=== PATIENT | male | born 1975 | race Two or more races ===

== ENCOUNTER 2023-09-03 10:24 | Emergency (ER) | payer OTHER ==
[~2023-09-03] VITALS: Ht 193 cm; Wt 136.1 kg
[2023-09-03] MEDS ORDERED: IRBESARTAN-HCT1 EACH PO (10:45)
[2023-09-03] MEDS ORDERED: VASOTEC10 MG (10:45)
[2023-09-03] MEDS ORDERED: TRIJARDY XR 121 EACH PO (10:45)
[2023-09-03] MEDS ORDERED: LANTUS SOL100 UNIT/1 SQ (10:46)
[2023-09-03] MEDS ORDERED: ATORVASTATIN CA10 MG PO (10:46)
[2023-09-03 11:20] LABS: ABG PO2 70.2 mmHg (80-100); ABG pCO2 41.3 mmHg (35-45); BASE EXCESS 0.9 mmol/l; BICARBONATE 25.6 mmol/l (23-25); SaO2 94.1 %; Tco2 26.9 mmol/l
[2023-09-03 11:51] LABS: HEMATOCRIT 44.1 % (39.0-48.0); HEMOGLOBIN 14.8 g/dL (13-16.00); MEAN CELL VOLUME 88.4 fL (80.0-100.00); MEAN CORPUSCULAR HEMOGLOBIN 29.6 pg (27.00-32.0); MEAN CORPUSCULAR HGB CONC 33.5 g/dl (32.0-36.0); PLATELET COUNT 333 K/uL (150-450); RED BLOOD COUNT 4.99 M/uL (4.00-6.00); RED CELL DISTRIBUTION WIDTH 13.8 % (11.5-14.5)
[2023-09-03 11:54] LABS: allen test SATISFACTORY; o2 21 %; puncture site RADIAL LEFT
[2023-09-03 12:15] LABS: ALBUMIN 3.4 gm/dL (3.4-5.0); BILIRUBIN TOTAL 0.42 mg/dL (0.3-1.2); CALCIUM 9.8 mg/dL (8.5-10.1); CREATININE SERUM 1.13 mg/dL (0.70-1.30); GFR 68.97; GLOBULINA 6.1 G/DL (2.4-3.5); POTASSIUM 4.09 mEq/L (3.5-5.1); TOTAL PROTEIN 9.5 gm/dL (6.4-8.2)
== END 2023-09-03 13:12 | disposition home or self-care (01) ==
LOC: ER 10:24
PROVIDERS: General Practice
DX: T78.3XXA Angioneurotic edema, initial encounter (principal); X58.XXXA Exposure to other specified factors, initial encounter; Y92.89 Other specified places as the place of occurrence of the external cause; Z88.6 Allergy status to analgesic agent; Z88.0 Allergy status to penicillin; Z91.013 Allergy to seafood